=== PATIENT | female | born 1945 | race African-American/Black ===

== ENCOUNTER 2017-12-30 11:54 | Emergency (ER) | payer MEDICARE ==
[~2017-12-30] VITALS: Ht 177.8 cm; Wt 79.4 kg
[2017-12-30] MEDS ORDERED: BENZTROPINE ME0.5 MG PO (12:57)
[2017-12-30] MEDS ORDERED: RISPERIDONE1 MG PO (12:57)
[2017-12-30] MEDS ORDERED: ALENDRONATE SOD35 MG PO (12:57)
[2017-12-30] MEDS ORDERED: DONEPEZIL HCL10 MG PO (12:57)
[2017-12-30] MEDS ORDERED: CITALOPRAM HBR20 MG PO (12:57)
[2017-12-30] MEDS ORDERED: METOPROLOL TART25 MG PO (12:57)
[2017-12-30] MEDS ORDERED: QUETIAPINE FUMA25 MG PO (12:57)
[2017-12-30] MEDS ORDERED: DEPAKOTE500 MG PO (12:57)
[2017-12-30] MEDS ORDERED: TRAZODONE HCL50 MG PO (12:57)
--- NOTE | 2017-12-30 13:57 | Diagnostic Imaging Report ---
History:Altered mental status Comparison studies: None Technique: Axial images were obtained from the skull base to the vertex. Coronal and sagittal images reconstructed from the axial data. Dose modulation, iterative reconstruction, and/or weight based adjustment of the mA/kV was utilized to reduce the radiation dose to as low as reasonably achievable. Intravenous contrast: None Findings: Scalp/skull: No abnormalities. Extra-axial spaces: No masses. No fluid collections. Brain sulci: Moderately prominent. Ventricles: Moderate compensatory dilatation. No hydrocephalus. Parenchyma: Ill-defined confluent hypodensities in the supratentorial white matter are small vessel ischemic changes. No masses, hemorrhage, acute or chronic cortical vascular insults. Sellar/suprasellar region: No abnormalities. Craniocervical junction: Patent foramen magnum. No Chiari one malformation. Impression: No acute abnormalities. Chronic findings: 1. Moderate generalized volume loss. 2. Mild supratentorial white matter small vessel ischemic changes. Signed by: Dr. Evan Austin M.D. on 12/30/2017 1:53 PM
[2017-12-30 14:08] LABS: BASOPHILS % 0.3 % (0.0-1.0); EOSINOPHILS # (AUTO) 0.1 (0.0-0.4); EOSINOPHILS % 2.3 % (0.0-6.0); HEMATOCRIT 41.9 % (34.2-44.1); HEMOGLOBIN 13.4 g/dL (12.0-16.0); LYMPHOCYTES # (AUTO) 1.5 (1.0-3.2); LYMPHOCYTES % 39.2 % (18.0-39.1); MEAN CORPUSCULAR HEMOGLOBIN 28.7 pg (28-32); MEAN CORPUSCULAR VOLUME 89.7 fL (81-99); MONOCYTES # (AUTO) 0.3 (0.2-0.8); MONOCYTES % 7.2 % (4.4-11.3); NEUTROPHILS % 50.7 % (38.7-80.0); PLATELET COUNT 121 x10e3/uL (140-360); RED BLOOD COUNT 4.67 x10e6/uL (3.6-5.1); RED CELL DISTRIBUTION WIDTH 14.7 % (11.7-14.4)
[2017-12-30 14:20] LABS: BILIRUBIN,URINE NEGATIVE (NEGATIVE); CLARITY,URINE CLEAR (CLEAR); COLOR,URINE YELLOW (YELLOW); KETONES,URINE NEGATIVE (NEGATIVE); LEUKOCYTE ESTERASE ,URINE NEGATIVE (NEGATIVE); NITRITE,URINE NEGATIVE (NEGATIVE); PROTEIN,URINE DIPSTICK NEGATIVE (NEGATIVE); URINE UROBILINOGEN 0.2 mg/dL (0.2 - 1)
[2017-12-30 14:36] LABS: BACTERIA,URINE RARE /HPF; EPITHELIAL CELLS,URINE RARE /LPF; RBC,URINE 0-5 /HPF (0-5)
[2017-12-30 14:39] LABS: ALBUMIN 3.6 g/dL (3.5-5.0); ALBUMIN/GLOBULIN RATIO 1.2 (0.8-2.0); CALCIUM 9.7 mg/dL (8.4-10.2); CREATININE, SERUM 1.36 mg/dL (0.57-1.11)
[2017-12-30 15:01] LABS: ACETAMINOPHEN < 3 ug/mL (10-30); SALICYLATE < 5.0 mg/dL (0-30)
[2017-12-30 16:37] LABS: VALPROIC ACID 140 ug/mL (50-100)
== END 2017-12-30 18:12 ==
LOC: ER 11:54
DX: G30.0 Alzheimer's disease with early onset (principal); F02.81 Dementia in other diseases classified elsewhere, unspecified severity, with behavioral disturbance; I10 Essential (primary) hypertension
CPT/HCPCS: 36415; 70450; 80053; 80164; 80320; 80329; 81001; 85025; 93005; 99284